=== PATIENT | male | born 1960 | race American Indian/Alaskan Native ===

== ENCOUNTER 2016-04-29 10:25 | Outpatient (CLI) | payer OTHER ==
--- NOTE | 2016-04-29 11:27 | XRay Report ---
ROUTINE CHEST, TWO VIEWS: HISTORY: Costochondral pain, chest pain. Heart size is at the upper limits of normal. Normal pulmonary vascularity. The lungs are clear. No pleural effusion or pneumothorax. Mild ectasia of the aorta is noted. The bony structures are grossly intact. IMPRESSION: No acute cardiopulmonary process. Borderline heart size.
--- NOTE | 2016-04-29 12:28 | XRay Report ---
LEFT RIBS, 3 VIEWS: History: pain. There appears to be a mildly displaced fracture involving the distal tip of the left 10th rib. This is near the costochondral junction. Please correlate with the patient. S. point tenderness is present acute fracture is likely. The remaining left ribs are intact. IMPRESSION: Probable left 10th rib fracture.
== END 2016-04-29 10:26 | disposition home or self-care (01) ==
LOC: XRAY 10:25
PROVIDERS: ATTEND Internal Medicine
DX: R07.81 Pleurodynia (principal); I77.819 Aortic ectasia, unspecified site
CPT/HCPCS: 71020

== ENCOUNTER 2017-04-01 11:42 | Inpatient (IN) | payer OTHER ==
[2017-04-01] MEDS ORDERED: NITRO-BID 2% TP ONE (13:14)
[2017-04-01] MEDS ORDERED: ASPIRIN PO ONE (13:14)
--- NOTE | 2017-04-01 13:14 | Emergency Department Report ---
Blank Doc - Documentation Documentation: Patient is a 56-year-old [place] male who is presenting with shortness of breath orthopnea PND. Patient states when he walks he gets short of breath as well he's had some leg swelling. Patient states he is supposed to take a water pill however he stopped taking it. Brief physical exam patient has some very fine rails and does have some leg swelling. Patient is denying any chest pain at this time. Patient states EKG does show ischemic changes. Patient will be moved to the main area for a cardiac workup
[2017-04-01] MEDS ORDERED: LASIX IV ONE (13:15)
[2017-04-01 13:32] LABS: Basophils # (Auto) 0.1 K/mm3 (0.0-0.1); Eosinophils # (Auto) 0.1 K/mm3 (0.0-0.4); Eosinophils % (Auto) 1.9 % (0.0-4.3); Hematocrit 44.3 % (35.5-45.6); Lymphocytes # (Auto) 2.5 K/mm3 (1.2-5.4); Mean Corpuscular HGB Conc 34 % (32-34); Mean Corpuscular Hemoglobin 30 pg (28-32); Mean Corpuscular Volume 89 fl (84-94); Monocytes # (Auto) 0.7 K/mm3 (0.0-0.8); Platelet Count 147 K/mm3 (140-440); Red Blood Count 4.96 M/mm3 (3.65-5.03); Red Cell Distribution Width 13.8 % (13.2-15.2)
[2017-04-01 13:48] LABS: Calcium 9.2 mg/dL (8.4-10.2)
[2017-04-01 13:49] LABS: INR 0.87 (0.87-1.13)
[2017-04-01 13:50] LABS: Partial Thromboplastin Time 29.3 Sec. (24.2-36.6)
--- NOTE | 2017-04-01 13:58 | XRay Report ---
CHEST XRAY, 2 VIEWS: History: Chest pain. Findings: There is mild cardiomegaly. Pulmonary vessels are within normal limits. The lungs are clear and fully expanded. No infiltrate, pleural effusion or pneumothorax. Normal thoracic cage. IMPRESSION: Cardiomegaly.
--- NOTE | 2017-04-01 16:46 | Emergency Department Report ---
HPI - General Chief Complaint: Dyspnea/Respdistress Time Seen by Provider: 04/01/17 13:08 - HPI HPI: Patient is a 56-year-old [place]ian male who is presenting with shortness of breath orthopnea PND. Patient states when he walks he gets short of breath as well he's had some leg swelling. Patient states he is supposed to take a water pill however he stopped taking it. Patient also complaining mild substernal chest discomfort, 3 out of 10 with no alleviating or exacerbating factors. She is noncompliant with medications. He has a primary care but has never seen a councilman according to him. ED Past Medical Hx - Past Medical History Hx Hypertension: Yes Hx Arthritis: Yes - Surgical History Additional Surgical History: left arm surgery - Social History Smoking Status: Never Smoker Substance Use Type: Alcohol ED Review of Systems ROS: Stated complaint: HTN, MELISSA Other details as noted in HPI Comment: All other systems reviewed and negative Respiratory: cough, orthopnea, SOB with exertion, SOB at rest Cardiovascular: chest pain Physical Exam - Physical Exam Vital Signs: Vital Signs 04/01/17 04/01/17 11:52 14:32 Temperature 98.1 F Pulse Rate 91 H 71 Respiratory 20 Rate Blood Pressure 170/119 169/119 O2 Sat by Pulse 97 Oximetry Physical Exam: Gen. alert and oriented 3 in no distress Head atraumatic normocephalic Eyes PERR LA EOMI Neck: Mild JVD bilaterally. Chest regular rate and rhythm normal S1-S2 lungs clear bilaterally, whereas bilateral lower lobes Abdomen soft nondistended Back no point tenderness paravertebral tenderness Neuro no focal deficit. Psych normal mood. Extremity: 2+ edema bilateral lower extremity. ED Course Vital Signs 04/01/17 04/01/17 11:52 14:32 Temperature 98.1 F Pulse Rate 91 H 71 Respiratory 20 Rate Blood Pressure 170/119 169/119 O2 Sat by Pulse 97 Oximetry ED Medical Decision Making - Lab Data Result diagrams: 04/01/17 13:21 04/01/17 13:21 Critical care attestation.: If time is entered above; I have spent that time in minutes in the direct care of this critically ill patient, excluding procedure time. ED Disposition Clinical Impression: Dyspnea on exertion, Chest pain Disposition: OP ADMIT IP TO THIS HOSP Is pt being admited?: Yes Does the pt Need Aspirin: Yes Condition: Stable Instructions: Chest Pain (ED) Referrals: PRIMARY CARE,MD [Primary Care Provider] - 3-5 Days
--- NOTE | 2017-04-01 17:28 | History and Physical Report ---
History of Present Illness Chief complaint: i cant breathe and my blood pressure is high History of present illness: 56 YO Male with HTN, RAUL Noncompliant with CPAP, Obesity presents to ED for evaluation. Pt states that he has experienced shortness of breath and leg swelling over the past 1 week, with worsening symptoms over the past 2 days. Pt acknowledges Orthopnea/PND, dypsnea on exertion, as well as an uncertain amount of weight gain. Pt acknowledges dietary, and medication noncompliance. Pt denies fever, chills, CP, Palpitations, NVD, Syncope, Prolonged travel/ immobility, Individual/family history of DVT/PE, Productive cough, recent ill contacts. Pt seen and evaluated in ED and found to have evidence of CHF decompensation, as well as respiratory failure. Pt initiated on supplemental oxygen, and NIPPV was ordered. Pt admitted to telemetry. Past History Past Medical History: arthritis, hypertension, other (RAUL) Past Surgical History: tonsillectomy, Other Social history: single. denies: smoking, alcohol abuse Family history: hypertension Medications and Allergies Allergies Allergy/AdvReac Type Severity Reaction Status Date / Time No Known Allergies Allergy Verified 04/01/17 17:57 Review of Systems Constitutional: weight gain, no weight loss, no fever, no chills, no sweats, no night sweats Ears, nose, mouth and throat: no ear pain, no ear discharge, no tinnitis, no decreased hearing, no nose pain, no nasal congestion, no sinus pressure Cardiovascular: orthopnea, shortness of breath, dyspnea on exertion, paroxysmal nocturnal dyspnea, high blood pressure, leg edema, no chest pain, no rapid/ irregular heart beat, no syncope, no lightheadedness Respiratory: no cough with sputum, no excessive sputum, no hemoptysis Gastrointestinal: no nausea, no vomiting, no diarrhea, no constipation Genitourinary Male: no hematuria, no flank pain, no discharge, no urinary frequency, no urinary hesitancy Rectal: no pain, no incontinence, no bleeding Musculoskeletal: no neck stiffness, no neck pain, no shooting arm pain, no arm numbness/tingling, no low back pain Integumentary: no rash, no pruritis, no redness, no sores, no wounds Neurological: no transient paralysis, no paralysis, no weakness, no parathesias , no numbness, no tingling, no seizures Psychiatric: no memory loss, no change in sleep habits, no sleep disturbances, no insomnia, no hypersomnia, no change in appetite Endocrine: no cold intolerance, no heat intolerance, no polyphagia, no excessive thirst, no polydipsia, no polyuria, no nocturia Hematologic/Lymphatic: no easy bruising, no easy bleeding, no lymphadenopathy, no lymphedema Allergic/Immunologic: no urticaria, no allergic rhinitis, no wheezing Exam - Constitutional Vitals: Temp Pulse Resp BP Pulse Ox 98.1 F 71 20 169/119 97 04/01/17 11:52 04/01/17 14:32 04/01/17 11:52 04/01/17 14:32 04/01/17 11:52 General appearance: Present: mild distress - EENT Eyes: Present: PERRL ENT: hearing intact, clear oral mucosa - Neck Neck: Present: supple, normal ROM - Respiratory Respiratory effort: labored Respiratory: bilateral: diminished, rales - Cardiovascular Heart Sounds: Present: S1 & S2. Absent: rub, click - Extremities Extremities: pulses symmetrical, No edema Extremity abnormal: edema Peripheral Pulses: within normal limits - Abdominal General gastrointestinal: Present: soft, non-tender, non-distended, normal bowel sounds Male genitourinary: Present: normal - Integumentary Integumentary: Present: clear, warm, dry - Musculoskeletal Musculoskeletal: gait normal, strength equal bilaterally - Psychiatric Psychiatric: appropriate mood/affect, intact judgment & insight - Neurologic Neurologic: CNII-XII intact, moves all extremities Results - Labs CBC & Chem 7: 04/01/17 13:21 04/01/17 13:21 Labs: Abnormal lab results 04/01/17 04/01/17 Range/Units 13:21 13:21 [place] % (Auto) 10.0 H (0.0-7.3) % BUN 29 H (9-20) mg/dL Creatinine 1.8 H (0.8-1.5) mg/dL Glucose 133 H (75-100) mg/dL Assessment and Plan - Patient Problems (1) CHF (congestive heart failure) Current Visit: Yes Status: Acute Qualifiers: Congestive heart failure type: combined Congestive heart failure chronicity : acute Qualified Code(s): I50.41 - Acute combined systolic (congestive) and diastolic (congestive) heart failure Plan to address problem: CHF Protocol: Echo, telemetry monitoring, fluid restriction, afterload reduction , daily weight, diuresis, supplemental oxygen, Cardiology consulted. (2) Respiratory failure Current Visit: Yes Status: Acute Qualifiers: Chronicity: acute Respiratory failure complication: hypoxia Qualified Code(s): J96.01 - Acute respiratory failure with hypoxia Plan to address problem: Supplemental oxygen, nebulizer therapy, NIPPV, D dimer, (3) ARF (acute renal failure) Current Visit: Yes Status: Acute Qualifiers: Acute renal failure type: with acute tubular necrosis Qualified Code(s): N17.0 - Acute kidney failure with tubular necrosis Plan to address problem: gentle IVF resuscitation, monitor uop q shift, repeat bmp, urine electrolytes. (4) Accelerated hypertension Current Visit: Yes Status: Acute Plan to address problem: IV hydralazine prn, JONNIE-Inhibitor, B theresa therapy, IV hydralazine prn, (5) DVT prophylaxis Current Visit: Yes Status: Acute
[2017-04-01] MEDS ORDERED: ZOFRAN IV PRN (17:35)
[2017-04-01] MEDS ORDERED: TYLENOL PO PRN (17:35)
[2017-04-01] MEDS ORDERED: PROVENTIL IH PRN (17:35)
[2017-04-01] MEDS ORDERED: LASIX IV SCH (18:00)
[2017-04-01] MEDS ORDERED: MORPHINE IV ONE (19:25)
[2017-04-01] MEDS ORDERED: MORPHINE ONE (20:02)
[2017-04-01] MEDS ORDERED: LOPRESSOR PO SCH (22:00)
[2017-04-02] MEDS ORDERED: ZESTRIL PO SCH (10:00)
--- NOTE | 2017-04-02 11:08 | Progress Note ---
Assessment and Plan Assessment and plan: 56 YO Male with HTN, RAUL Noncompliant with CPAP, Obesity presents to ED for evaluation. Pt states that he has experienced shortness of breath and leg swelling over the past 1 week, with worsening symptoms over the past 2 days. Pt acknowledges Orthopnea/PND, dypsnea on exertion, as well as an uncertain amount of weight gain. Pt acknowledges dietary, and medication noncompliance. Pt denies fever, chills, CP, Palpitations, NVD, Syncope, Prolonged travel/ immobility, Individual/family history of DVT/PE, Productive cough, recent ill contacts. Pt seen and evaluated in ED and found to have evidence of CHF decompensation, as well as respiratory failure. Pt initiated on supplemental oxygen, and NIPPV was ordered. Pt admitted to telemetry. CHF (congestive heart failure) CHF Protocol: Echo, telemetry monitoring, fluid restriction, afterload reduction , daily weight, diuresis, supplemental oxygen, Cardiology consulted. Respiratory failure Supplemental oxygen, nebulizer therapy, NIPPV, D dimer, ARF (acute renal failure) gentle IVF resuscitation, monitor uop q shift, repeat bmp, urine electrolytes. Accelerated hypertension IV hydralazine prn, JONNIE-Inhibitor, B theresa therapy, IV hydralazine prn, DVT prophylaxis Current Visit: Yes Status: Acute Hospitalist Physical - Constitutional Vitals: Temp Pulse Resp BP Pulse Ox 97.2 F L 86 20 155/115 95 04/02/17 07:59 04/02/17 07:59 04/02/17 07:59 04/02/17 07:59 04/02/17 07:59 General appearance: Present: mild distress Results - Labs CBC & Chem 7: 04/01/17 13:21 04/01/17 13:21 Labs: Laboratory Last Values WBC 7.4 K/mm3 (4.5-11.0) 04/01/17 13:21 RBC 4.96 M/mm3 (3.65-5.03) 04/01/17 13:21 Hgb 15.0 gm/dl (11.8-15.2) 04/01/17 13:21 Hct 44.3 % (35.5-45.6) 04/01/17 13:21 MCV 89 fl (84-94) 04/01/17 13:21 MCH 30 pg (28-32) 04/01/17 13:21 MCHC 34 % (32-34) 04/01/17 13:21 RDW 13.8 % (13.2-15.2) 04/01/17 13:21 Plt Count 147 K/mm3 (140-440) 04/01/17 13:21 Lymph % (Auto) 34.0 % (13.4-35.0) 04/01/17 13:21 [place] % (Auto) 10.0 % (0.0-7.3) H 04/01/17 13:21 Eos % (Auto) 1.9 % (0.0-4.3) 04/01/17 13:21 Baso % (Auto) 1.0 % (0.0-1.8) 04/01/17 13:21 Lymph # 2.5 K/mm3 (1.2-5.4) 04/01/17 13:21 [place] # 0.7 K/mm3 (0.0-0.8) 04/01/17 13:21 Eos # 0.1 K/mm3 (0.0-0.4) 04/01/17 13:21 Baso # 0.1 K/mm3 (0.0-0.1) 04/01/17 13:21 Seg Neutrophils % 53.1 % (40.0-70.0) 04/01/17 13:21 Seg Neutrophils # 3.9 K/mm3 (1.8-7.7) 04/01/17 13:21 PT 12.3 Sec. (12.2-14.9) 04/01/17 13:21 INR 0.87 (0.87-1.13) 04/01/17 13:21 APTT 29.3 Sec. (24.2-36.6) 04/01/17 13:21 D-Dimer < 135.00 ng/mlDDU (0-234) 04/01/17 18:26 Sodium 140 mmol/L (137-145) 04/01/17 13:21 Potassium 4.9 mmol/L (3.6-5.0) 04/01/17 13:21 Chloride 98.4 mmol/L (98-107) 04/01/17 13:21 Carbon Dioxide 29 mmol/L (22-30) 04/01/17 13:21 Anion Gap 18 mmol/L 04/01/17 13:21 BUN 29 mg/dL (9-20) H 04/01/17 13:21 Creatinine 1.8 mg/dL (0.8-1.5) H 04/01/17 13:21 Estimated GFR 47 ml/min 04/01/17 13:21 BUN/Creatinine Ratio 16 % 04/01/17 13:21 Glucose 133 mg/dL (75-100) H 04/01/17 13:21 Calcium 9.2 mg/dL (8.4-10.2) 04/01/17 13:21 Troponin T 0.021 ng/mL (0.00-0.029) 04/01/17 16:14 NT-Pro-B Natriuret Pep 200.6 pg/mL (0-900) 04/01/17 13:21
[2017-04-02] MEDS ORDERED: NON-FORMULARY (Amlodipine Besylate/Valsartan [Amlodipine-Valsartan 5-160 Mg] 1 EACH) PO SCH (11:15)
--- NOTE | 2017-04-02 11:39 | Consultation ---
History of Present Illness Consult date: 04/02/17 Consult reason: congestive heart failure History of present illness: This is a 56yr old male who gives a history of Hypertension, RAUL, noncompliant with medical therapy and Cpap. There is no history of coronary disease. Patient reports he had negative thallium stress test as an outpatient within the last year. He presents with shortness of breath on exertion. Patient denies chest pain and palpitations. A chest xray reports a mild cardiomegaly but no interstitial edema. A cardiac consultation was requested for CHF evaluation. Past History Past Medical History: arthritis, hypertension, other (RAUL) Past Surgical History: tonsillectomy, Other Social history: single. denies: smoking, alcohol abuse Family history: hypertension Medications and Allergies Allergies Allergy/AdvReac Type Severity Reaction Status Date / Time No Known Allergies Allergy Verified 04/01/17 17:57 Home Medications Medication Instructions Recorded Confirmed Last Taken Type Amlodipine Besylate/Valsartan 1 each PO DAILY 04/01/17 04/01/17 Unknown History [Amlodipine-Valsartan 5-160 mg] Ibuprofen [Motrin] 800 mg PO Q6H PRN 04/01/17 04/01/17 Unknown History Triamter/Hctz 37.5-25 mg 1 each PO DAILY 04/01/17 04/01/17 Unknown History [Maxzide-25] Active Meds: Active Medications Amlodipine Besylate (Norvasc) 5 mg PO QDAY [facility] Aspirin (Halfprin Ec) 81 mg PO QDAY [facility] Hydralazine HCl (Apresoline) 10 mg IV Q4HR PRN PRN Reason: BP >160/100 Valsartan (Diovan) 160 mg PO QDAY [facility] Physical Examination Vital Signs Temp Pulse Resp BP Pulse Ox 98.1 F 91 H 20 170/119 97 04/01/17 11:52 04/01/17 11:52 04/01/17 11:52 04/01/17 11:52 04/01/17 11:52 General appearance: no acute distress HEENT: Positive: PERRL Neck: Positive: trachea midline Cardiac: Positive: Reg Rate and Rhythm Lungs: Positive: Decreased Breath Sounds Neuro: Positive: Grossly Intact Extremities: Present: edema (mild) Results 04/01/17 13:21 04/01/17 13:21 Coagulation 04/01/17 Range/Units 13:21 PT 12.3 (12.2-14.9) Sec. INR 0.87 (0.87-1.13) APTT 29.3 (24.2-36.6) Sec. CBC 04/01/17 Range/Units 13:21 WBC 7.4 (4.5-11.0) K/mm3 RBC 4.96 (3.65-5.03) M/mm3 Hgb 15.0 (11.8-15.2) gm/dl Hct 44.3 (35.5-45.6) % Plt Count 147 (140-440) K/mm3 Lymph # 2.5 (1.2-5.4) K/mm3 [place] # 0.7 (0.0-0.8) K/mm3 Eos # 0.1 (0.0-0.4) K/mm3 Baso # 0.1 (0.0-0.1) K/mm3 Comprehensive Metabolic Panel 04/01/17 Range/Units 13:21 Sodium 140 (137-145) mmol/L Potassium 4.9 (3.6-5.0) mmol/L Chloride 98.4 (98-107) mmol/L Carbon Dioxide 29 (22-30) mmol/L BUN 29 H (9-20) mg/dL Creatinine 1.8 H (0.8-1.5) mg/dL Glucose 133 H (75-100) mg/dL Calcium 9.2 (8.4-10.2) mg/dL Assessment and Plan Shortness of breath Hypertension RAUL Noncompliant with medical therapy
[2017-04-02] MEDS: NORVASC PO SCH (13:15)
[2017-04-02] MEDS: DIOVAN PO SCH (13:17)
[2017-04-02 13:56] LABS: Creatine Kinase MB 7.2 ng/mL (0.0-4.0)
[2017-04-02] MEDS ORDERED: APRESOLINE IV PRN (14:00)
[2017-04-03 07:10] LABS: Chol/HDL Ratio 5.75 %
[2017-04-03] MEDS ORDERED: LEXISCAN IV ONE ×2 (08:05→08:10)
[2017-04-03 08:25] LABS: Calcium 8.4 mg/dL (8.4-10.2)
--- NOTE | 2017-04-03 10:44 | Progress Note ---
Assessment and Plan - Patient Problems (1) Hyperlipemia Current Visit: Yes Status: Acute (2) ARF (acute renal failure) Current Visit: Yes Status: Acute Qualifiers: Acute renal failure type: with acute tubular necrosis Qualified Code(s): N17.0 - Acute kidney failure with tubular necrosis (3) Accelerated hypertension Current Visit: Yes Status: Acute (4) Chest pain Current Visit: Yes Status: Acute Subjective Date of service: 04/03/17 Interval history: NO CV C\O,,,,ARTH. PAIN Objective Vital Signs Temp Pulse Pulse Resp Resp BP BP 04/03/17 06:27 75 135/96 04/03/17 05:01 98.3 F 18 64/32 04/03/17 04:58 97.9 F 61 18 148/105 04/03/17 04:12 65 04/03/17 04:05 97.9 F 61 18 148/105 04/03/17 00:29 83 20 04/02/17 23:46 98.2 F 80 18 138/91 04/02/17 22:00 82 18 17 04/02/17 21:11 04/02/17 19:12 98.2 F 98 H 18 167/101 04/02/17 17:09 97.6 F 90 20 154/106 04/02/17 16:58 78 04/02/17 11:55 97.4 F L 78 20 148/101 Pulse Ox 04/03/17 06:27 04/03/17 05:01 04/03/17 04:58 96 04/03/17 04:12 04/03/17 04:05 96 04/03/17 00:29 96 04/02/17 23:46 97 04/02/17 22:00 97 04/02/17 21:11 96 04/02/17 19:12 94 04/02/17 17:09 93 04/02/17 16:58 04/02/17 11:55 96 - Physical Examination General: No Apparent Distress HEENT: Positive: PERRL Neck: Positive: trachea midline Cardiac: Positive: Reg Rate and Rhythm Lungs: Positive: clear to auscultation Neuro: Positive: Grossly Intact Extremities: Present: edema (mild) - Labs and Meds Cardiac Enzymes 04/02/17 Range/Units 12:44 CK-MB (CK-2) 7.2 H (0.0-4.0) ng/mL Lipids 04/03/17 Range/Units 05:35 Triglycerides 252 H (2-149) mg/dL Cholesterol 236 H (50-199) mg/dL HDL Cholesterol 41 (40-59) mg/dL Cholesterol/HDL Ratio 5.75 % Comprehensive Metabolic Panel 04/03/17 Range/Units 05:35 Sodium 137 (137-145) mmol/L Potassium 4.2 (3.6-5.0) mmol/L Chloride 96.4 L (98-107) mmol/L Carbon Dioxide 28 (22-30) mmol/L BUN 32 H (9-20) mg/dL Creatinine 1.7 H (0.8-1.5) mg/dL Glucose 143 H (75-100) mg/dL Calcium 8.4 (8.4-10.2) mg/dL
[2017-04-03] MEDS ORDERED: HALFPRIN EC PO SCH (11:30)
--- NOTE | 2017-04-03 11:43 | Discharge Summary ---
Providers - Providers Date of Admission: 04/01/17 17:35 Attending physician: NAGI ZARAGOZA MD 04/01/17 17:42 Consult to Physician [CONS] Routine Consulting Provider: ZAHRAA RODRIGUEZ Reason For Exam: chf Place consult to:: answering service Notified:: yes Phone number called:: [phone] Was contact made?: Yes If yes, spoke with:: Gloria Time called:: 18:20 04/02/17 11:16 Consult to Physician [CONS] Routine Consulting Provider: LEROY BEAL Reason For Exam: naomi Place consult to:: RENAL Notified:: OFFICE Time called:: 11:51 Primary care physician: CATTLE SPRAYER Hospitalization Condition: Stable Hospital course: 56 YO Male with HTN, RAUL Noncompliant with CPAP, Obesity presents to ED for evaluation. Pt states that he has experienced shortness of breath and leg swelling over the past 1 week, with worsening symptoms over the past 2 days. Pt acknowledges Orthopnea/PND, dypsnea on exertion, as well as an uncertain amount of weight gain. Pt acknowledges dietary, and medication noncompliance. Pt denies fever, chills, CP, Palpitations, NVD, Syncope, Prolonged travel/ immobility, Individual/family history of DVT/PE, Productive cough, recent ill contacts. Pt seen and evaluated in ED and found to have evidence of CHF decompensation, as well as respiratory failure. Pt initiated on supplemental oxygen, and NIPPV was ordered. Pt admitted to telemetry. CHF (congestive heart failure) CHF Protocol: Echo, telemetry monitoring, fluid restriction, afterload reduction , daily weight, diuresis, supplemental oxygen, Cardiology consulted. Respiratory failure Supplemental oxygen, nebulizer therapy, NIPPV, D dimer, ARF (acute renal failure) gentle IVF resuscitation, monitor uop q shift, repeat bmp, urine electrolytes. Accelerated hypertension IV hydralazine prn, JONNIE-Inhibitor, B theresa therapy, IV hydralazine prn, DVT prophylaxis Current Visit: Yes Status: Acute Disposition: DC-01 TO HOME OR SELFCARE Time spent for discharge: 33 minutes Core Measure Documentation - Palliative Care Palliative Care/ Comfort Measures: Not Applicable - Core Measures Any of the following diagnoses?: none Exam - Constitutional Vitals: Temp Pulse Resp BP Pulse Ox 98.3 F 98 H 18 176/115 96 04/03/17 05:01 04/03/17 10:28 04/03/17 05:01 04/03/17 10:28 04/03/17 04:58 General appearance: Present: no acute distress, well-nourished - EENT Eyes: Present: PERRL ENT: hearing intact, clear oral mucosa - Neck Neck: Present: supple, normal ROM - Respiratory Respiratory effort: normal Respiratory: bilateral: CTA - Cardiovascular Heart Sounds: Present: S1 & S2. Absent: rub, click - Extremities Extremities: pulses symmetrical, No edema Peripheral Pulses: within normal limits - Abdominal General gastrointestinal: Present: soft, non-tender, non-distended, normal bowel sounds Male genitourinary: Present: normal - Integumentary Integumentary: Present: clear, warm, dry - Musculoskeletal Musculoskeletal: gait normal, strength equal bilaterally - Psychiatric Psychiatric: appropriate mood/affect, intact judgment & insight - Neurologic Neurologic: CNII-XII intact, moves all extremities Plan Follow up with: LEROY BEAL MD [Staff Physician] - 7 Days PRIMARY CARE, [Primary Care Provider] - 3-5 Days Prescriptions: amLODIPine [Norvasc] 5 mg PO DAILY #30 tab Aspirin EC [Aspirin Enteric Coated TAB] 81 mg PO QDAY #30 tablet Valsartan/Hydrochlorothiazide [Valsartan-Hctz 160-25 mg Tab] 1 each PO DAILY # 30 tablet
[2017-04-03] MEDS: DIOVAN PO SCH (11:47)
[2017-04-03] MEDS: NORVASC PO SCH (11:47)
[2017-04-03 15:32] VITALS: BP 147/92
--- NOTE | 2017-04-06 00:59 | Treadmill Report ---
THALLIUM STRESS TEST LEFT VENTRICLE: Left ventricular chamber size is within normal spread. Perfusion study demonstrates a small fixed basal inferior defect of moderate intensity, no reversible defects identified. Gated analysis suggests mild left ventricular systolic dysfunction with ejection fraction calculated at 44%. CONCLUSION: Small fixed basal inferior defect of moderate intensity consistent with diaphragmatic attenuation artifact. There is no reversible ischemia demonstrated on this study. Recommend clinical correlation and echocardiographic reassessment of left ventricular systolic function. [facility]# [id number] CA/NTS
== END 2017-04-03 15:51 | disposition home or self-care (01) | DRG 291 ==
LOC: ED 11:42 → 4A 17:35 → UNDODISIN 19:30 → 4A 19:37
PROVIDERS: ADMIT Internal Medicine; ATTEND Internal Medicine
DX: I13.0 Hypertensive heart and chronic kidney disease with heart failure and stage 1 through stage 4 chronic kidney disease, or unspecified chronic kidney disease (principal); J96.90 Respiratory failure, unspecified, unspecified whether with hypoxia or hypercapnia; N17.9 Acute kidney failure, unspecified; I50.9 Heart failure, unspecified; E78.5 Hyperlipidemia, unspecified; M19.90 Unspecified osteoarthritis, unspecified site; G47.33 Obstructive sleep apnea (adult) (pediatric); Z82.49 Family history of ischemic heart disease and other diseases of the circulatory system; E66.9 Obesity, unspecified; Z91.14 Patient's other noncompliance with medication regimen; I16.0 Hypertensive urgency
CPT/HCPCS: 36415; 71046; 78452; 80048; 80061; 82550; 82553; 83880; 84484; 85025; 85379; 85610; 85730; 93005; 93010; 93017; 93306; 94660; 94760; 96374; 96375; 96376; A9502; J0360; J1940; J2270; J2405; J2785